=== PATIENT | female | born 1980 | race Caucasian/White ===

== ENCOUNTER 2020-02-28 07:00 | Outpatient (CLI) | payer OTHER ==
[~2020-02-28 07:00] MED LIST: GADOTERATE 5 MMOL/10 ML VIAL ONE; OMNIPAQUE 300 MG/ML, 10ML VIAL ONE
[2020-02-28] MEDS ORDERED: TRIAMCINOLONE ACETONIDE 40 MG/ML, 1ML ONE (07:22)
[2020-02-28] MEDS ORDERED: LIDOCAINE 1%, 10ML ONE (07:23)
[2020-02-28] MEDS ORDERED: ROPivacaine/PF 0.2%, 10 ML ONE (07:23)
[2020-02-28] MEDS ORDERED: GADOBUTROL 10 MMOL/10 ML VIAL ONE (10:13)
[2020-02-28] MEDS ORDERED: OMNIPAQUE 300 MG/ML, 10ML VIAL ONE (10:13)
== END 2020-02-28 23:59 | disposition home or self-care (01) ==
LOC: RAD 07:00
PROVIDERS: ATTEND Orthopaedic Surgery
DX: M25.552 Pain in left hip (principal); S73.192A Other sprain of left hip, initial encounter; M24.152 Other articular cartilage disorders, left hip; X58.XXXA Exposure to other specified factors, initial encounter; Y93.89 Activity, other specified; Y92.89 Other specified places as the place of occurrence of the external cause; Y99.8 Other external cause status
CPT/HCPCS: 27093; 73525; 73722; A9575; A9585; J2795; J3301; J3490; Q9967

== ENCOUNTER 2020-05-25 09:54 | Outpatient (CLI) | payer OTHER | END 2020-05-25 23:59 | disposition home or self-care (01) | LOC: CFH 09:54 | PROVIDERS: ATTEND Internal Medicine | DX: Z12.31 Encounter for screening mammogram for malignant neoplasm of breast (principal); Z12.39 Encounter for other screening for malignant neoplasm of breast; N60.01 Solitary cyst of right breast; N60.02 Solitary cyst of left breast; Z80.3 Family history of malignant neoplasm of breast | CPT/HCPCS: 76641; 77063; 77067 ==